=== PATIENT | male | born 1985 | race African-American/Black ===

== ENCOUNTER 2023-10-26 16:44 | Emergency (ER) | payer SELFPAY ==
[~2023-10-26] VITALS: Ht 180.3 cm; Wt 72.0 kg
[2023-10-26 16:52] VITALS: BP 155/102; PULSE 95; RESP 20; TEMP 98.9; O2SAT 99
[2023-10-26] MEDS ORDERED: IBUP-2029 MT (17:04)
[2023-10-26] MEDS ORDERED: AMOX1TAB16 MT (17:04)
== END 2023-10-26 17:44 | disposition home or self-care (01) ==
LOC: ER 16:44
DX: K04.7 Periapical abscess without sinus (principal); Z98.890 Other specified postprocedural states
CPT/HCPCS: 99283